=== PATIENT | female | born 1990 | race Hispanic/Latino ===

== ENCOUNTER 2018-09-28 22:15 | Emergency (ER) | payer OTHER ==
[2018-09-29 00:07] LABS: BASOPHILS % (AUTO) 0.7 % (0.0-5.0); EOSINOPHILS % (AUTO) 0.9 % (0.0-8.0); HEMATOCRIT 37.3 % (36-48); LYMPHOCYTES % (AUTO) 29.9 % (21.0-51.0); MEAN CORPUSCULAR HEMOGLOBIN 28.4 pg (27.0-33.0); MEAN CORPUSCULAR HGB CONC 33.8 g/dL (32.0-36.0); MEAN CORPUSCULAR VOLUME 84.1 fL (79-99); MONOCYTES % (AUTO) 8.4 % (3.0-13.0); NEUTROPHILS % (AUTO) 60.1 % (40.0-77.0); NUCLEATED RED BLOOD CELLS 0.1 % (0.0-0.19); PLATELET COUNT (AUTO) 302 K/uL (130-400); RED BLOOD CELL COUNT(AUTO) 4.44 MIL/uL (4.00-5.50); RED CELL DISTRIBUTION WIDTH 14.2 % (11.0-15.5); WHITE BLOOD COUNT (AUTO) 5.9 K/uL (4.8-10.8)
== END 2018-09-29 01:10 | disposition home or self-care (01) ==
LOC: EDH 22:15
DX: O26.891 Other specified pregnancy related conditions, first trimester (principal); R10.2 Pelvic and perineal pain; Z3A.01 Less than 8 weeks gestation of pregnancy
CPT/HCPCS: 36415; 84702; 85025; 86900; 86901

== ENCOUNTER 2020-05-14 15:37 | Emergency (ER) | payer MEDICAID, OTHER | END 2020-05-14 17:37 | disposition home or self-care (01) | LOC: EDH 15:37 | DX: L03.116 Cellulitis of left lower limb (principal); Z72.0 Tobacco use; Z88.0 Allergy status to penicillin; F12.90 Cannabis use, unspecified, uncomplicated ==

== ENCOUNTER 2020-05-16 09:40 | Emergency (ER) | payer SELFPAY ==
[2020-05-16] MEDS ORDERED: LIDOCAINE HCL 1% 20 ML VIAL ONE (10:56)
[2020-05-16] MEDS ORDERED: LIDOCAINE HCL-MPF 1% 2ML VIAL ONE (11:04)
[2020-05-16] MEDS ORDERED: CEFTRIAXONE SODIUM 1 GM ONE (11:05)
== END 2020-05-16 12:10 | disposition home or self-care (01) ==
LOC: EDH 09:40
DX: L02.416 Cutaneous abscess of left lower limb (principal); Z88.0 Allergy status to penicillin
CPT/HCPCS: 10060; 96372; 99283; J0696; J3490

== ENCOUNTER 2022-01-22 02:24 | Emergency (ER) | payer OTHER ==
[~2022-01-22] VITALS: Ht 157.5 cm; Wt 68.9 kg
[2022-01-22 05:10] VITALS: BP 127/98
== END 2022-01-22 05:11 | disposition home or self-care (01) ==
LOC: EDH 02:24
DX: F41.1 Generalized anxiety disorder (principal); F41.0 Panic disorder [episodic paroxysmal anxiety]; Z88.0 Allergy status to penicillin
CPT/HCPCS: 93005

== ENCOUNTER 2023-01-09 12:27 | Emergency (ER) | payer MEDICAID ==
[~2023-01-09] VITALS: Ht 160 cm; Wt 65.8 kg
[2023-01-09 12:28] VITALS: BP 138/84; PULSE 100; RESP 20
[2023-01-09 12:52] LABS: BASOPHILS # (AUTO) 0.01 K/uL (0.00-0.20); BASOPHILS % (AUTO) 0.4 % (0.0-5.0); HEMATOCRIT 35.3 % (36-48); IMMATURE GRANULOCYTE ABSOLUTE 0.03 K/uL (0-1); LYMPHOCYTES # (AUTO) 0.4 K/uL (1.0-4.8); MEAN CORPUSCULAR HEMOGLOBIN 22.6 pg (27.0-33.0); MEAN CORPUSCULAR HGB CONC 30.6 g/dL (32.0-36.0); MEAN CORPUSCULAR VOLUME 73.8 fL (79-99); MONOCYTES # (AUTO) 0.2 K/uL (0.1-1.0); MONOCYTES % (AUTO) 7.3 % (3.0-13.0); NEUTROPHILS % (AUTO) 75.2 % (40.0-77.0); PLATELET COUNT (AUTO) 242 K/uL (130-400); RED BLOOD CELL COUNT(AUTO) 4.78 MIL/uL (4.00-5.50); RED CELL DISTRIBUTION WIDTH 14.8 % (11.0-15.5); WHITE BLOOD COUNT (AUTO) 2.6 K/uL (4.8-10.8)
[2023-01-09 13:04] LABS: ADD UA MICROSCOPIC YES; APPEARANCE,URINE CLOUDY (CLEAR); BILIRUBIN,URINE NEGATIVE (NEGATIVE); COLOR,URINE RED (YELLOW); GLUCOSE, URINE (UA) NEGATIVE (NEGATIVE); KETONES,URINE NEGATIVE (NEGATIVE); LEUKOCYTE ESTERASE ,URINE 75 Leu/uL (NEGATIVE); NITRATE,URINE NEGATIVE (NEGATIVE); OCCULT BLOOD,URINE LARGE (NEGATIVE); PH,URINE 5.5 (5.0-8.0); PROTEIN,URINE 50 mg/dL (NEGATIVE); UROBILINOGEN,URINE 0.2 mg/dL (0.2-1.0)
[2023-01-09 13:07] LABS: BACTERIA,URINE FEW /HPF (None Seen); MUCUS,URINE FEW LPF (None Seen); RBC,URINE TNTC /HPF (0-1); SQUAMOUS EPITHELIAL CELL,UR FEW /HPF (0-2)
[2023-01-09 13:11] LABS: CREATININE 0.8 mg/dL (0.5-1.5); HCG,QUALITATIVE URINE NEGATIVE (NEGATIVE); POTASSIUM 3.7 mmol/L (3.5-5.1)
[2023-01-09 13:16] LABS: ALBUMIN 3.8 g/dL (3.5-5.0); BILIRUBIN,TOTAL 0.3 mg/dL (0.2-1.0); TOTAL PROTEIN, SERUM 7.7 g/dL (6.0-8.3)
[2023-01-09 13:33] LABS: BAND NEUTROPHILS % (MANUAL) 19 % (0-2); LYMPHOCYTES % (MANUAL) 28 % (22-44); MAN.DIFF COMMENT-IMPRESSION MANUAL DIFFERENTIAL; MONOCYTES % (MANUAL) 4 % (2-9); PLATELET MORPHOLOGY COMMENT ADEQUATE; SEGMENTED NEUTROPHILS % 49 % (40-70); TOTAL CELLS COUNTED 100; WBC MORPHOLOGY CONSISTENT W/DIFF
[2023-01-09] MEDS ORDERED: ACETAMINOPHEN 325 MG TAB PO ONE (15:00)
[2023-01-09] MEDS ORDERED: IBUPROFEN 600 MG TABLET PO ONE (15:30)
[2023-01-09] MEDS ORDERED: SULFAMETHOX-TMP DS 800/160 TAB PO SCH (15:30)
[2023-01-09] MEDS ORDERED: ONDANSETRON ODT 4MG TAB SL ONE (15:30)
[2023-01-09] MEDS ORDERED: SULF1TAB42 PO (15:59)
== END 2023-01-09 16:05 | disposition home or self-care (01) ==
LOC: EDH 12:27
DX: N39.0 Urinary tract infection, site not specified (principal); Z88.0 Allergy status to penicillin
CPT/HCPCS: 36415; 80053; 81001; 81025; 85025; 87088

== ENCOUNTER 2023-03-06 13:07 | Emergency (ER) | payer MEDICAID ==
[~2023-03-06] VITALS: Ht 157.5 cm; Wt 66.2 kg
[~2023-03-06 13:07] MED LIST: SULF1TAB42 PO
[2023-03-06 14:56] VITALS: BP 132/84; PULSE 100; RESP 16
== END 2023-03-06 19:18 | disposition home or self-care (01) ==
LOC: EDH 13:07
DX: J02.9 Acute pharyngitis, unspecified (principal); R04.1 Hemorrhage from throat; Z88.0 Allergy status to penicillin
CPT/HCPCS: 87880

== ENCOUNTER 2023-03-07 07:24 | Emergency (ER) | payer MEDICAID ==
[~2023-03-07] VITALS: Ht 157.5 cm; Wt 66.2 kg
[2023-03-07 07:30] VITALS: BP 133/83; PULSE 106; RESP 18; O2SAT 100
== END 2023-03-07 11:01 | disposition home or self-care (01) ==
LOC: EDH 07:24
DX: J02.9 Acute pharyngitis, unspecified (principal); Z88.0 Allergy status to penicillin; Z20.822 Contact with and (suspected) exposure to COVID-19
CPT/HCPCS: 36415; 86308; 87071; 87880

== ENCOUNTER 2023-04-30 16:54 | Emergency (ER) | payer MEDICAID ==
[~2023-04-30] VITALS: Ht 157.5 cm; Wt 65.8 kg
[2023-04-30] MEDS ORDERED: ACETAMINOPHEN 500 MG TABLET PO ONE (19:00)
[2023-04-30 21:36] VITALS: BP 118/72; PULSE 68; RESP 18; O2SAT 99
== END 2023-04-30 22:25 | disposition left against medical advice (07) ==
LOC: EDH 16:54
DX: M25.511 Pain in right shoulder (principal); M54.2 Cervicalgia; J45.909 Unspecified asthma, uncomplicated
CPT/HCPCS: 70450; 72125; 73030; 81025

== ENCOUNTER 2023-05-02 12:14 | Emergency (ER) | payer MEDICAID ==
[~2023-05-02] VITALS: Ht 157.5 cm; Wt 65.8 kg
[2023-05-02 12:17] VITALS: BP 132/79; PULSE 118; RESP 20
[2023-05-02] MEDS ORDERED: ACETAMINOPHEN 500 MG TABLET PO ONE (12:30)
[2023-05-02] MEDS ORDERED: CEFTRIAXONE 1G VIAL IM ONE (12:30)
[2023-05-02 13:12] VITALS: TEMP 103.3
[2023-05-02 13:18] LABS: COVID19 (SARS ANTIGEN RAPID) PRESUMPTIVE NEGATIVE (NEGATIVE); INFLUENZA TYPE A Negative For Type A (NEGATIVE)
[2023-05-02 13:23] LABS: INFLUENZA TYPE B Positive For Type B (NEGATIVE)
[2023-05-02] MEDS ORDERED: CEPH500B PO (13:27)
[2023-05-02] MEDS ORDERED: BENZ-39 PO (13:27)
[2023-05-02] MEDS ORDERED: OSEL75 PO (13:27)
== END 2023-05-02 14:09 | disposition home or self-care (01) ==
LOC: EDH 12:14
DX: J10.1 Influenza due to other identified influenza virus with other respiratory manifestations (principal); R50.9 Fever, unspecified; Z20.822 Contact with and (suspected) exposure to COVID-19; Z79.899 Other long term (current) drug therapy; Z88.0 Allergy status to penicillin
CPT/HCPCS: 99283; 87426; 87804 ×2; 96372; J0696

== ENCOUNTER 2024-05-14 10:22 | Emergency (ER) | payer SELFPAY ==
[~2024-05-14] VITALS: Ht 157.5 cm; Wt 68.2 kg
[~2024-05-14 10:22] MED LIST changes: +BENZ-39 PO; +CEPH500B PO; +OSEL75 PO
[2024-05-14] MEDS ORDERED: ondanSETRON 4MG INJ IVP ONE (10:30)
[2024-05-14] MEDS ORDERED: PANTOPrazole 40 MG/VIAL IVP ONE (10:30)
[2024-05-14] MEDS ORDERED: 0.9%NACL 1000ML 1,000 ML IV ONE (10:30)
--- NOTE | 2024-05-14 11:18 | ERN ---
General Chief Complaint: Vaginal Problems/Bleeding Stated Complaint: DISCOMFORT IN PRIVATE AREA Time Seen by MD: 10:23 Source: patient History of Present Illness Initial Comments PATIENT IS A 33-YEAR-OLD FEMALE COMING IN TO BE EVALUATED FOR DYSURIA AND VAGINAL DISCOMFORT. PATIENT STATES THAT THE DYSURIA HAS BEEN ONGOING FOR ONE WEEK. SHE ALSO STATES THAT SHE HAS BEEN HAVING VAGINAL DISCHARGE SINCE TODAY. SHE STATES THAT SHE ONLY HAS ONE SEXUAL PARTNER. Allergies: Coded Allergies: Penicillins (Unverified Allergy, Unknown, 09/29/18) Home Meds Active Scripts Benzonatate (Tessalon Perles) 100 Mg Cap, 100 MG PO TID PRN for COUGH, #30 CAP Prov:[employer] 05/02/23 Oseltamivir Phosphate (Tamiflu) 75 Mg Cap, 75 MG PO BID for 5 Days, #10 CAP Prov:[employer] 05/02/23 Cephalexin Monohydrate (Keflex) 500 Mg Cap, 500 MG PO QID for 7 Days, #28 CAP Prov:KEN[employer] 05/02/23 Sulfamethoxazole/Trimethoprim (Bactrim Ds Tablet) 800 Mg-160 Mg Tablet, 1 TAB PO BID for 7 Days, #14 TAB 0 Refills Prov:[employer] 01/09/23 Past Medical History Past Medical History: No Pertinent History, Anemia Past Surgical History: None Family History Family History: Negative Social History Social History: Negative, Lives with family Female( History) History: Not Applicable LMP: Apr 23, 2024 : 2 Para: 1 Aborts: 1 ROS Dictation CONSTITUTIONAL: NO CHILLS, NO FEVER, NO WEAKNESS, NO DIAPHORESIS, NO MALAISE. HEAD/FACE: NO SIGNS OF TRAUMA. EENT: NO EYE PAIN, NO BLURRED VISION, NO TEARING, NO DOUBLE VISION, NO EAR PAIN, NO EAR DISCHARGE, NO NOSE PAIN, NO NASAL CONGESTION, NO THROAT PAIN, NO THROAT SWELLING, NO MOUTH PAIN. RESPIRATORY: NO COUGH, NO ORTHOPNEA, NO SOB, NO STRIDOR, NO WHEEZING. CARDIOVASCULAR: NO CHEST PAIN, NO EDEMA, NO PALPITATIONS, NO SYNCOPE. GASTROINTESTINAL/ABDOMINAL: NO ABDOMINAL PAIN, NO CONSTIPATION, NO DIARRHEA, NO NAUSEA, NO VOMITING. GENITOURINARY: ABNORMAL DISCHARGE, DYSURIA, NO FREQUENT URINATION, NO HEMATURIA. NO COMPLAINTS OF PAIN IN THE GENITALS. MUSCULOSKELETAL: NO BACK PAIN, NO GOUT, NO JOINT PAIN, NO JOINT SWELLING, NO MUSCLE PAIN, NO MUSCLE STIFFNESS, NO NECK PAIN. INTEGUMENTARY: NO CHANGE IN COLOR, NO CHANGE IN HAIR/NAILS, NO DRYNESS, NO LESION, NO LUMPS, NO RASH. NEUROLOGICAL/PSYCH: NO ANXIETY, NOT DEPRESSED, NO EMOTIONAL PROBLEM, NO HEADACHE, NO NUMBNESS, NO PRE-EXISTING DEFICIT, NO HISTORY OF SEIZURES, NO TREMORS, NO WEAKNESS. HEMATOLOGIC/LYMPHATIC: NOT ANEMIC, NO HISTORY OF BLOOD CLOTS, NO APPARENT BLEEDING, NO BRUISING, GLANDS NOT SWOLLEN. ALL SYSTEMS NEGATIVE, EXCEPT NOTED. Physical Exam Physical Exam Dictation VITAL SIGNS: REVIEWED. GENERAL APPEARANCE: ALERT, ORIENTED X3, NO ACUTE DISTRESS, OBESE. HEAD AND FACE: NON-TRAUMATIC. EYES: PERRL, PINK CONJUNCTIVAS, EYELID NO TRAUMA, ANTERIOR CHAMBER CLEAR. EARS: PINNAS INTACT AND NO SIGNS OF TRAUMA OR ERYTHEMA. EAR CANALS CLEAR AND NO DISCHARGE. TMS NO ERYTHEMA. NOSE: NO DISCHARGE, NO BLEEDING. OROPHARYNX: MOUTH NORMAL, TEETH NO CARIES, TONGUE PINK. PHARYNX CLEAR, NO ERYTHEMA. TONSILS NO EXUDATES, NO ABSCESSES NOTED. MUCOUS MEMBRANE MOIST. NECK: SUPPLE, NON-TENDER, NO THYROMEGALY, NO MASSES, NO JVD, NO BRUITS. BREAST: DEFERRED. CHEST: NO TENDERNESS, NO CREPITUS, NO PARADOXICAL MOVEMENT, NO RETRACTIONS. LUNGS: CLEAR, WELL-VENTILATED, SYMMETRIC, NO RALES, NO WHEEZING, NO RHONCHI, NO STRIDOR, GOOD BREATH SOUNDS BILATERALLY. HEART: REGULAR RATE, REGULAR RHYTHM, NO MURMUR, NO GALLOPS. VASCULAR: NO PERIPHERAL EDEMA. ABDOMEN: SOFT, POSITIVE BOWEL SOUNDS, NONDISTENDED, NO GUARDING, NONTENDER, NO REBOUND, NO MASSES NO HEPATOMEGALY, NO SPLENOMEGALY, NO QUESADA'S SIGN, NO HERNIAS. RECTAL: DEFERRED. GENITAL: DEFERRED. NEUROLOGICAL: NORMAL SPEECH, GROSS MOTOR FUNCTION INTACT, GROSS SENSORY FUNCT ION INTACT. MUSCULOSKELETAL: NECK NONTENDER, FULL RANGE OF MOTION, BACK NONTENDER, FULL RANGE OF MOTION. EXTREMITIES: NONTENDER, FULL RANGE OF MOTION. SKIN: COLOR PINK, DRY, NO TURGOR, NO RASH, NO LACERATIONS, NO ABRASIONS, NO CONTUSIONS. LYMPHATICS: DEFERRED. Results Laboratory and Microbiology Lab and Micro Result Laboratory Tests Test 2/2/25 10:56 Urine Color LIGHT-YELLOW (YELLOW) Urine Appearance CLEAR (CLEAR) Urine pH 6.0 (5.0-8.0) Urine Specific [place] 1.023 (1.001-1.031) Urine Protein NEGATIVE mg/dL (NEGATIVE) Urine Glucose (UA) NEGATIVE mg/dL (NEGATIVE) Urine Ketones NEGATIVE mg/dL (NEGATIVE) Urine Occult Blood NEGATIVE (NEGATIVE) Urine Nitrate NEGATIVE (NEGATIVE) Urine Bilirubin NEGATIVE mg/dL (NEGATIVE) Urine Urobilinogen 0.2 mg/dL (0.2-1.0) Urine Leukocyte Esterase NEGATIVE Vik/uL Urine RBC 0-1 /HPF (0-1) Urine WBC 0-1 /HPF (0-1) Urine Squamous Epithelial Cells RARE /HPF (0-2) Urine Bacteria None /HPF (None Seen) Labs Reviewed?: Yes MDM MDM: Differential diagnosis: Vaginal discharge, dysuria, Patient is a 33-year-old female coming in to be evaluated for dysuria and vaginal discharge. Patient was reluctant to have a pelvic exam performed and I advised her appropriate follow up with nitroglycerin supervisor or PCP for ongoing evaluation. Urine was collected GC we will be ran if something is positive patient will be called for treatment. ED Course Orders Procedure Category Date Status Time Urinalysis LAB 05/14/24 Complete W/Microscopic 10:43 Chlamydia & Gc Pcr LUCHO 05/14/24 In Process 10:43 Current Medications Medications (Trade) Dose Ordered Sig/Sabrina Route PRN Reason Start Time Stop Time Status Last Admin Dose Admin Ondansetron HCl (zoFRAN 4MG INJ) 4 mg ONCE ONCE IVP 05/14/24 10:30 05/14/24 10:42 DC Pantoprazole Sodium (PROTonix 40MG INJ) 40 mg ONCE ONCE IVP 05/14/24 10:30 05/14/24 10:42 DC Sodium Chloride 1,000 ml @ 0 mls/hr ONCE ONCE IV 05/14/24 10:30 05/14/24 10:42 DC Vital Signs Date Time Temp Pulse Resp B/P (MAP) Pulse Ox O2 Delivery O2 Flow Rate FiO2 05/14/24 10:46 98.2 85 16 121/76 98 Room Air* 0 21 05/14/24 10:46 98.2 85 16 121/76 98 Room Air 0 DX & DISP Disposition: Discharge Departure Impression: Primary Impression: Vaginitis Condition: Stable Additional Instructions: FOLLOW-UP WITH PRIMARY CARE PROVIDER IN 1 TO 2 DAYS. TAKE MEDICATIONS DIRECTED HERE IN THE EMERGENCY ROOM. OKAY TO CONTINUE HOME MEDICATIONS UNLESS OTHERWISE DISCUSSED DURING YOUR VISIT IN THE EMERGENCY ROOM TODAY. RETURN TO YOUR NEAREST EMERGENCY ROOM IF SYMPTOMS WORSEN OR IF THERE IS NO IMPROVEMENT. CALL 911 IF YOU NEED IMMEDIATE ASSISTANCE. TAKE TYLENOL [id number] NEEDED AND IF NO CONTRAINDICATIONS ARE PRESENT. INCREASE ORAL HYDRATION. A WOUND CULTURE OR URINE CULTURE WAS ORDERED HERE IN THE EMERGENCY ROOM DEPARTMENT PLEASE FOLLOW-UP WITH PRIMARY CARE PROVIDER AND ADVISE THEM TO GET REPEAT PORTS FROM OUR FACILITY. IF YOU HAD ANY LAURYN WRAP/SPLINTS THAT WERE APPLIED HERE, PLEASE DO NOT REMOVE THEM UNTIL YOU SEE YOUR PRIMARY CARE OR SPECIALTY. Referrals: Referrals: KELLI ALVARADO (PCP) JOS SPRING MD Time of Disposition: 11:44 WALKER ROLLINS MD May 14, 2024 11:18
[2024-05-14 11:39] LABS: APPEARANCE,URINE CLEAR (CLEAR); BILIRUBIN,URINE NEGATIVE (NEGATIVE); COLOR,URINE LIGHT-YELLOW (YELLOW); GLUCOSE, URINE (UA) NEGATIVE (NEGATIVE); KETONES,URINE NEGATIVE (NEGATIVE); LEUKOCYTE ESTERASE ,URINE NEGATIVE Leu/uL (NEGATIVE); MUCUS,URINE RARE LPF (None Seen); NITRATE,URINE NEGATIVE (NEGATIVE); OCCULT BLOOD,URINE NEGATIVE (NEGATIVE); PROTEIN,URINE NEGATIVE (NEGATIVE); RBC,URINE 0-1 /HPF (0-1); SQUAMOUS EPITHELIAL CELL,UR RARE /HPF (0-2); UROBILINOGEN,URINE 0.2 mg/dL (0.2-1.0); WBC,URINE 0-1 /HPF (0-1)
[2024-05-14 12:08] VITALS: BP 115/76; PULSE 80; RESP 16; TEMP 98.2; O2SAT 98
== END 2024-05-14 12:08 | disposition home or self-care (01) ==
LOC: EDH 10:22
DX: N76.0 Acute vaginitis (principal); Z88.0 Allergy status to penicillin
CPT/HCPCS: 81001; 87491; 87591; 99283